=== PATIENT | female | born 1975 | race Two or more races ===

== ENCOUNTER 2018-12-30 01:06 | Emergency (ER) | payer SELFPAY ==
[~2018-12-30] VITALS: Ht 157.5 cm; Wt 68.0 kg
[2018-12-30] MEDS ORDERED: NKM (01:16)
[2018-12-30] MEDS ORDERED: IBUPROFEN600 MG ORAL (01:32)
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
[2018-12-30 02:15] VITALS: BP 119/74
[2018-12-30 02:37] VITALS: BP 119/74
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
== END 2018-12-30 02:38 | disposition home or self-care (01) ==
LOC: EMR 01:48
DX: S09.90XA Unspecified injury of head, initial encounter (principal); S10.91XA Abrasion of unspecified part of neck, initial encounter; V43.52XA Car driver injured in collision with other type car in traffic accident, initial encounter; Y92.410 Unspecified street and highway as the place of occurrence of the external cause
CPT/HCPCS: 70450; 99284